=== PATIENT | female | born 1945 | race Hispanic/Latino ===

== ENCOUNTER 2023-02-15 05:53 | Day surgery (SDC) | payer OTHER, MEDICARE ==
[2023-02-11 09:31] LABS: APPEARANCE,URINE CLOUDY (CLEAR); BILIRUBIN,URINE NEGATIVE (NEGATIVE); COLOR,URINE YELLOW (YELLOW); GLUCOSE, URINE (UA) NEGATIVE (NEGATIVE); KETONES,URINE NEGATIVE (NEGATIVE); LEUKOCYTE ESTERASE ,URINE 500 Leu/uL (NEGATIVE); NITRATE,URINE NEGATIVE (NEGATIVE); OCCULT BLOOD,URINE NEGATIVE (NEGATIVE); PROTEIN,URINE 20 mg/dL (NEGATIVE); UROBILINOGEN,URINE 0.2 mg/dL (0.2-1.0)
[2023-02-11 09:36] LABS: BACTERIA,URINE FEW /HPF (None Seen); MUCUS,URINE FEW LPF (None Seen); SQUAMOUS EPITHELIAL CELL,UR MANY /HPF (0-2); TRANSITIONAL EPI CELLS,URINE FEW /HPF (None Seen); WBC,URINE TNTC /HPF (0-1)
[2023-02-11 09:40] LABS: BASOPHILS % (AUTO) 0.5 % (0.0-5.0); EOSINOPHILS % (AUTO) 4.9 % (0.0-8.0); HEMATOCRIT 38.5 % (36-48); LYMPHOCYTES % (AUTO) 38.7 % (21.0-51.0); MEAN CORPUSCULAR HEMOGLOBIN 31.5 pg (27.0-33.0); MEAN CORPUSCULAR HGB CONC 31.9 g/dL (32.0-36.0); MEAN CORPUSCULAR VOLUME 98.7 fL (79-99); MONOCYTES % (AUTO) 10.6 % (3.0-13.0); NEUTROPHILS % (AUTO) 44.9 % (40.0-77.0); PLATELET COUNT (AUTO) 300 K/uL (130-400); RED CELL DISTRIBUTION WIDTH 13.5 % (11.0-15.5); WHITE BLOOD COUNT (AUTO) 10.3 K/uL (4.8-10.8)
[2023-02-11 09:46] VITALS: BP 166/74
[2023-02-11 09:49] LABS: CREATININE 0.8 mg/dL (0.5-1.5); POTASSIUM 4.2 mmol/L (3.5-5.1)
[2023-02-11 09:51] LABS: INR 0.94 (0.85-1.15); PROTHROMBIN TIME 10.3 SEC (9.6-11.6)
[2023-02-11 09:52] LABS: PARTIAL THROMBOPLASTIN TIME 27.1 SEC (26.3-35.5)
[2023-02-11 10:57] LABS: B-TYPE NATRIURETIC PEPTIDE 14 pg/mL (0-100)
[~2023-02-15] VITALS: Ht 144.8 cm; Wt 81.6 kg
[2023-02-15] VITALS (9 sets, daily range): BP systolic 133–213; BP diastolic 51–89
[~2023-02-15 05:53] MED LIST: ACET650O3 PO; ALBU18HF7 IH; AMLO2.5T4 PO; ASCO500T19 PO; ASPI-1197 PO; DICL100T85 PO; FOLI200T12 PO; ISOS30TA92 PO; PRAV40TA3 PO
[2023-02-15] MEDS ORDERED: 0.9%NACL 1000ML 1,000 ML IV ONE (06:18)
[2023-02-15] MEDS ORDERED: MIDAZOLAM HCL 1 MG/ML 2ML VIAL ONE (07:05)
[2023-02-15] MEDS ORDERED: LIDOCAINE HCL 400MG/20ML VIAL ONE (07:05)
[2023-02-15] MEDS ORDERED: FENTANYL CITRATE PF 50 MCG/1 ML 2ML VIAL ONE (07:06)
[2023-02-15] MEDS ORDERED: IOHEXOL-350 50ML VIAL IV ONE (07:06)
[2023-02-15] MEDS ORDERED: IOHEXOL-350 75 ML VIAL IV ONE (07:06)
[2023-02-15] MEDS ORDERED: NITROGLYCERIN 50MG VIAL ONE (07:06)
[2023-02-15] MEDS ORDERED: GLUCAGON 1MG KIT 1 MG ML IM PRN (08:30)
[2023-02-15] MEDS ORDERED: 0.9%NACL 1000ML 1,000 ML IV SCH (08:30)
[2023-02-15] MEDS ORDERED: DEXTROSE 50%-WATER 50 ML DISP.SYRIN IV PRN (08:30)
== END 2023-02-15 12:10 | disposition home or self-care (01) ==
LOC: DAH 05:53
PROVIDERS: ATTEND Internal Medicine Cardiovascular Disease
DX: I25.110 Atherosclerotic heart disease of native coronary artery with unstable angina pectoris (principal); I65.22 Occlusion and stenosis of left carotid artery; I35.1 Nonrheumatic aortic (valve) insufficiency; I11.0 Hypertensive heart disease with heart failure; I50.32 Chronic diastolic (congestive) heart failure; E78.5 Hyperlipidemia, unspecified; I87.2 Venous insufficiency (chronic) (peripheral); E66.9 Obesity, unspecified; Z79.01 Long term (current) use of anticoagulants; Z79.899 Other long term (current) drug therapy; Z79.82 Long term (current) use of aspirin; Z82.49 Family history of ischemic heart disease and other diseases of the circulatory system; Z98.890 Other specified postprocedural states; Z87.891 Personal history of nicotine dependence; Z72.89 Other problems related to lifestyle; Z68.34 Body mass index [BMI] 34.0-34.9, adult
CPT/HCPCS: 80048; 83880; 85025; 85610; 85730; 87088; 81001; 36415; 71045; 93005; 93458; C1894 ×3; J3010; J3490 ×2; J7030; J2250; J1644; Q9967 ×2; A4215; A4222; A4221; A4663; A4606; Q9965; A4223 ×3; 96360; 96361; 99156; 99157